=== PATIENT | female | born 1945 | race Caucasian/White ===

== ENCOUNTER 2020-04-26 06:54 | Outpatient (CLI) | payer MEDICARE ==
[2020-04-26 13:59] LABS: #Basophils 0.1 10x3/uL (0.0-0.2); #Eosinphils 0.2 10x3/uL (0.0-0.5); #Monocytes 0.5 10x3/uL (0.0-1.1); %Eosinophils 2.4 % (0.0-6.0); %Lymphocytes 31.5 % (18.0-47.0); %Monocytes 7.2 % (0.0-10.0); %Neutrophils 57.3 % (40.0-75.0); Hemoglobin 13.8 g/dL (12.0-16.0); Mean Corpuscular HGB CONC 33.7 G/DL (32.0-36.0); Mean Corpuscular Hemoglobin 30.9 PG (27.0-33.0); Mean Corpuscular Volume 91.5 fl (80.0-100.0); Mean Platelet Volume 9.7 fl (7.4-10.4); Platelet Count 245 10x3/uL (130-400); RBC Distribution Width 12.5 % (11.5-14.5); Red Blood Cell (RBC) Count 4.47 10x6/uL (3.90-5.20)
[2020-04-26 14:11] LABS: Prothrombin Time 10.5 sec (9.5-12.1)
[2020-04-26 22:58] LABS: SARS-CoV-2 MS2 Positive; SARS-CoV-2 N Gene Negative; SARS-CoV-2 S Gene Negative; SARS-CoV-2 by NAA Not Detected (NotDetected); SARS-CoV-2 orf1ab Negative
--- NOTE | 2020-05-01 06:55 | EKG ---
Test Reason : Blood Pressure : / mmHG Vent. Rate : 060 BPM Atrial Rate : 060 BPM P-R Int : 166 ms QRS Dur : 084 ms QT Int : 420 ms P-R-T Axes : 069 038 013 degrees QTc Int : 420 ms Normal sinus rhythm Nonspecific ST abnormality Abnormal ECG No previous ECGs available Confirmed by MALLORY WILKS MD ([id number]) on 05/01/2020 6:54:41 AM Referred By: POPEYE Confirmed By:MALLORY WILKS MD
== END 2020-04-26 06:55 | disposition home or self-care (01) ==
LOC: LABBT 06:54
PROVIDERS: ATTEND Orthopaedic Surgery
DX: Z01.818 Encounter for other preprocedural examination (principal); M16.11 Unilateral primary osteoarthritis, right hip; Z20.828 Contact with and (suspected) exposure to other viral communicable diseases
CPT/HCPCS: 85025; 85610; 87081; 93005; U0003; 87635; 93010

== ENCOUNTER 2020-04-26 13:00 | Inpatient (IN) | payer MEDICARE ==
[2020-05-01] MEDS ORDERED: Tranexamic Acid 1,000 MG/10 ML VIAL ONE (06:11)
[2020-05-01] MEDS ORDERED: Sodium Chloride 0.9% 100 ML ONE (06:12)
[2020-05-01] MEDS ORDERED: Vancomycin 1 GM/200 ML BAG ONE (06:12)
[2020-05-01] MEDS ORDERED: Fentanyl 100 MCG/2 ML VIAL ONE ×2 (06:31→07:12)
[2020-05-01] MEDS ORDERED: Midazolam HCl 2 mg/2 ml Vial ONE (06:31)
[2020-05-01] MEDS ORDERED: methylPREDNISolone Acetate 40 mg/ml Vial ONE (06:52)
[2020-05-01] MEDS ORDERED: Lidocaine 1% (PF) 30 ML VIAL ONE (06:52)
[2020-05-01] MEDS ORDERED: Bupivacaine 0.25% 10 ML VIAL EPIDURAL PRN (07:30)
[2020-05-01] MEDS ORDERED: fentaNYL Citrate/PF 500 MCG, Bupivacaine 10 ML in Sodium Chloride 0.9% 80 ML EPIDURAL SCH (07:30)
[2020-05-01] MEDS ORDERED: traMADol HCl 50 MG TAB PO PRN ×3 (07:30→08:50)
[2020-05-01] MEDS ORDERED: diphenhydrAMINE 50 MG/ML VIAL IM PRN (07:30)
[2020-05-01] MEDS ORDERED: HYDROcodone/Acetaminophen 5/325 mg Tablet PO PRN ×2 (07:30)
[2020-05-01] MEDS ORDERED: Hydrocerin (Eucerin) Cream 120 gm Jar TOP PRN (07:30)
[2020-05-01] MEDS ORDERED: Promethazine HCl 25 MG SUPP PR PRN (07:30)
[2020-05-01] MEDS ORDERED: Naloxone HCl 0.4 mg/ml Vial IV PRN (07:30)
[2020-05-01] MEDS ORDERED: diphenhydrAMINE 50 MG/ML VIAL IVP PRN (07:30)
[2020-05-01] MEDS ORDERED: Naloxone HCl 0.4 mg/ml Vial IVP PRN (07:30)
[2020-05-01] MEDS ORDERED: Promethazine HCl 25 MG/ML VIAL IM PRN ×2 (07:30→08:50)
[2020-05-01] MEDS ORDERED: Zolpidem Tartrate 5 MG TAB PO PRN ×2 (07:30→08:50)
[2020-05-01] MEDS ORDERED: Ondansetron PF 4 MG/2 ML Vial IVP PRN ×2 (07:30→08:50)
[2020-05-01] MEDS ORDERED: diphenhydrAMINE 25 MG CAP PO PRN (07:30)
[2020-05-01] MEDS ORDERED: Bupivacaine 0.25% HCL 30 ML VIAL ONE (07:49)
[2020-05-01] MEDS ORDERED: HYDROcodone/Acetaminophen 10/325 mg Tablet PO PRN ×2 (08:50)
[2020-05-01] MEDS ORDERED: Ketorolac Tromethamine 30 MG/ML VIAL IVP PRN (08:50)
[2020-05-01] MEDS ORDERED: Fentanyl 100 MCG/2 ML VIAL SLOW IVP PRN ×2 (08:50)
[2020-05-01] MEDS ORDERED: Acetaminophen 325 MG TAB PO PRN (08:50)
[2020-05-01] MEDS ORDERED: ePHEDrine 50 MG/ML VIAL ONE (09:19)
[2020-05-01] MEDS ORDERED: Rocuronium Bromide 10 MG/ML (10ML VIAL) ONE (09:45)
[2020-05-01] MEDS ORDERED: PHENYLEPHRINE-NS 100 MCG/ML 10 ML SYRINGE ONE (09:45)
[2020-05-01] MEDS ORDERED: Ondansetron PF 4 MG/2 ML Vial ONE (09:45)
[2020-05-01] MEDS ORDERED: Lidocaine 1.5% w/Epi 1:200K 30 ML VIAL (Epid Use) ONE (09:45)
[2020-05-01] MEDS ORDERED: Glycopyrrolate 0.2 MG/ML 5 ML SYRINGE ONE (09:45)
[2020-05-01] MEDS ORDERED: Dexamethasone 20 MG/5 ML VIAL ONE (09:45)
[2020-05-01] MEDS ORDERED: Ketorolac Tromethamine 30 MG/ML VIAL ONE ×2 (09:45→14:14)
[2020-05-01] MEDS ORDERED: PROPOFOL 200 MG/20 ML VIAL ONE (09:45)
[2020-05-01] MEDS ORDERED: Ketorolac Tromethamine 30 MG/ML VIAL IVP SCH (12:00)
[2020-05-01] MEDS: Senokot S 8.6-50 MG TAB PO SCH ×2 (14:07→20:52)
--- NOTE | 2020-05-01 14:14 | RAD ---
EXAM: Left hip: One view INDICATIONS: Postop hip replacement COMPARISON: None. FINDINGS: Components appear adequately positioned on this one view study. IMPRESSION: Postop left hip
[2020-05-01] MEDS: Ketorolac Tromethamine 30 MG/ML VIAL IVP SCH ×2 (14:23→20:48)
--- NOTE | 2020-05-01 14:36 | OP ---
DATE OF PROCEDURE: 05/01/2020 PREOPERATIVE DIAGNOSIS: Left hip osteoarthritis as well as left knee osteoarthritis. POSTOPERATIVE DIAGNOSIS: Left hip osteoarthritis as well as left knee osteoarthritis. PROCEDURES PERFORMED: 1. Left total hip arthroplasty. 2. Left knee large joint injection. STAFF: Stevie Rasmussen MD. SLURRY MAN: Dillon IQBAL ANESTHESIOLOGIST: Kym Love MD ANESTHESIA: The patient received a general with epidural. ESTIMATED BLOOD LOSS: Less than 150 mL. TOURNIQUET TIME: None. ANTIBIOTICS: Ancef 2 g, vancomycin 1 g, TXA 1 g. The patient had a Trident 10-degree 36 mm X3 poly, Trident Tritanium II size 52 mm shell, a 36 -2-1/2 ceramic Biolox Delta head and a size 4 Accolade II hip stem. COMPLICATIONS: None. HISTORY OF PRESENT ILLNESS: Ms. Iyer is a pleasant 74-year-old female who presents with left hip pain. She has failed conservative measures, anti-inflammatories, weight reduction, and home therapy. The patient also has left knee arthritis and desired left knee injection at that time. I discussed the risks and benefits of the left total hip arthroplasty to include pain, scar, bleeding, infection, damage to vital structures, decreased range of motion and strength, continued pain despite surgical intervention, blood clots, loss of life or limb. I discussed with her that her use of the Premarin dose slightly increased risk of blood clots. She understands the risks and benefits of procedure and elected to proceed. DESCRIPTION OF PROCEDURE: Time-out was performed designating the patient's left lower extremity as the operative site based on site, consents, and marking. After time-out, the patient's left lower extremity was prepped and draped, and she was placed in a lateral decubitus position. Her bony prominences were prepped and draped in sterile fashion. Procedure #1: After time-out, we placed a lateral incision down through skin, down to the IT band. IT band was split. Gluteus medius and minimus were taken off, the capsule was excised, the head was dislocated. We cut the head, short neck cuts, and given the short neck as well as thigh angle, removed the ball, placed our retractors in acetabulum. We removed our labrum, reamed starting at a 44 up to a 52, placed a 52 mm Trident II cup by 6 mm poly with it rotated posteriorly. We moved back to the femur. We broached from a 1 and up to a 4, trialed and broached again to get a little better position, placed a poly, trialed a 4 with a standard, we were a little bit long so we chose 4, -2-1/2. We washed. We then placed our final implant, put the 2-1/[address], reduced the hip. We did all range of motion. No signs of dislocation. We then washed. We closed the gluteus medius and minimus with #1 Vicryl. We closed IT band with #1 Vicryl, #2 Stratafix, 0 Stratafix, and 2-0 Stratafix, and glue. Procedure #2: The patient's left leg was cleaned. We injected the left knee intra-articularly with 8 mg of Depo-Medrol and 6 mL of 0.25% Marcaine plain into the joint. The patient will be admitted back to [facility], will be followed in- house. My sourcing assistant helped me with the positioning, approach, exposure, femoral neck cut, passed up for reaming, implantation of socket, implantation of femur, cleaning of the joint, closure, and injection of the knee. Job ID: [id number] MTDD
[2020-05-01] MEDS: Ferrous Gluconate 324 MG TAB PO SCH ×2 (14:41→20:52)
[2020-05-01] MEDS: Aspirin 81 mg Enteric Coated Tablet PO SCH ×2 (14:41→20:49)
--- NOTE | 2020-05-01 15:13 | RAD ---
AP VIEW OF THE PELVIS: INDICATION: History of total hip arthroplasty. COMPARISON: Prior left hip radiograph dated 03/15/2020. FINDINGS: Since the comparison examination, there has been interval placement of a left total hip prosthesis. Visualized prosthetic components project in the expected position. Mild degenerative change remains at the SI joints and symphysis pubis. Mild degenerative change is seen involving the right hip. Warba el gas pattern is unobstructed. IMPRESSION: Left total hip arthroplasty. POS: BH
[2020-05-01] MEDS: diphenhydrAMINE 25 MG CAP PO PRN (17:39)
[2020-05-01] MEDS: CEFAZOLIN 2 GM in Premix Bag 1 BAG IVPB SCH (17:41)
[2020-05-01] MEDS ORDERED: Vancomycin 1 GM in Premix Bag 1 BAG IVPB SCH (20:00)
[2020-05-01] MEDS: Gabapentin 300 MG CAP PO SCH (20:49)
[2020-05-01] MEDS: Rosuvastatin 10 MG TAB PO SCH (20:50)
[2020-05-01] MEDS: metFORMIN 500 MG TAB PO SCH (20:52)
[2020-05-02] MEDS: CEFAZOLIN 2 GM in Premix Bag 1 BAG IVPB SCH (00:32)
[2020-05-02] MEDS: Ketorolac Tromethamine 30 MG/ML VIAL IVP SCH ×4 (01:49→20:18)
[2020-05-02 05:33] LABS: Hemoglobin 12.2 g/dL (12.0-16.0); Mean Corpuscular HGB CONC 34.9 g/dL (32.0-36.0); Mean Corpuscular Hemoglobin 32.3 pg (27.0-31.0); Mean Corpuscular Volume 92.7 fL (78.0-98.0); Platelet Count 180 thou/uL (130-400); RBC Distribution Width 11.4 % (11.5-14.5); Red Blood Cell (RBC) Count 3.78 mill/uL (4.20-5.40); White Blood Cell (WBC) Count 9.1 thou/uL (4.8-10.8)
[2020-05-02] MEDS: Multivitamin W/ Minerals 1 TAB PO SCH (08:29)
[2020-05-02] MEDS: Gabapentin 300 MG CAP PO SCH ×2 (08:29→20:15)
[2020-05-02] MEDS: Ferrous Gluconate 324 MG TAB PO SCH ×2 (08:31→20:15)
[2020-05-02] MEDS: Aspirin 81 mg Enteric Coated Tablet PO SCH ×2 (08:31→20:15)
[2020-05-02] MEDS: Losartan 25 MG TAB PO SCH (08:32)
[2020-05-02] MEDS: Senokot S 8.6-50 MG TAB PO SCH ×2 (08:32→20:14)
[2020-05-02] MEDS: Bisoprolol Fumarate/HCTZ 5 mg/6.25 mg Tablet PO SCH (09:25)
[2020-05-02] MEDS: diphenhydrAMINE 25 MG CAP PO PRN ×2 (09:25→20:14)
[2020-05-02 11:18] VITALS: BMI 29.2
[2020-05-02] MEDS: Rosuvastatin 10 MG TAB PO SCH (20:14)
[2020-05-02] MEDS: metFORMIN 500 MG TAB PO SCH (20:16)
[2020-05-03] MEDS: Ketorolac Tromethamine 30 MG/ML VIAL IVP SCH ×2 (01:49→08:16)
[2020-05-03 05:20] LABS: Hemoglobin 12.1 g/dL (12.0-16.0); Mean Corpuscular HGB CONC 34.3 g/dL (32.0-36.0); Mean Corpuscular Hemoglobin 32.5 pg (27.0-31.0); Mean Corpuscular Volume 94.8 fL (78.0-98.0); Mean Platelet Volume 7.3 fL (7.4-10.4); Platelet Count 186 thou/uL (130-400); RBC Distribution Width 11.3 % (11.5-14.5); Red Blood Cell (RBC) Count 3.72 mill/uL (4.20-5.40); White Blood Cell (WBC) Count 12.5 thou/uL (4.8-10.8)
[2020-05-03] MEDS: Gabapentin 300 MG CAP PO SCH (08:13)
[2020-05-03] MEDS: Ferrous Gluconate 324 MG TAB PO SCH (08:13)
[2020-05-03] MEDS: Aspirin 81 mg Enteric Coated Tablet PO SCH (08:15)
[2020-05-03] MEDS: Senokot S 8.6-50 MG TAB PO SCH (08:15)
[2020-05-03] MEDS: Multivitamin W/ Minerals 1 TAB PO SCH (08:16)
[2020-05-03] MEDS: Losartan 25 MG TAB PO SCH (08:16)
[2020-05-03] MEDS: Bisoprolol Fumarate/HCTZ 5 mg/6.25 mg Tablet PO SCH (10:49)
[2020-05-03 11:16] VITALS: BP 114/68; TEMP 97.6
== END 2020-05-03 14:05 | disposition home or self-care (01) | DRG 470 ==
LOC: SJJU 05-01 05:34
PROVIDERS: ADMIT Orthopaedic Surgery; ATTEND Orthopaedic Surgery
PROC: 0SRB03Z Replacement of Left Hip Joint with Ceramic Synthetic Substitute, Open Approach (ICD-10-PCS; principal; 2020-05-01)
DX: M16.12 Unilateral primary osteoarthritis, left hip (principal); Z20.828 Contact with and (suspected) exposure to other viral communicable diseases; I10 Essential (primary) hypertension; R13.10 Dysphagia, unspecified; J30.9 Allergic rhinitis, unspecified; E55.9 Vitamin D deficiency, unspecified; E11.9 Type 2 diabetes mellitus without complications; Z79.82 Long term (current) use of aspirin; Z79.899 Other long term (current) drug therapy; Z79.84 Long term (current) use of oral hypoglycemic drugs; Z87.891 Personal history of nicotine dependence; Z90.710 Acquired absence of both cervix and uterus
CPT/HCPCS: 36415; 72170; 85027; 86850; 86900; 86901; J0690; J1100; J1885; J2001; J2250; J2405; J2704; J2920; J3010; J3370; J3490; Q0163; S0020

== ENCOUNTER 2024-06-30 08:44 | Outpatient (CLI) | payer MEDICARE | END 2024-06-30 08:45 | disposition home or self-care (01) | LOC: DTY/OP 08:44 | DX: Z00.00 Encounter for general adult medical examination without abnormal findings (principal); E11.42 Type 2 diabetes mellitus with diabetic polyneuropathy | CPT/HCPCS: 97802 ==

== ENCOUNTER 2024-07-22 09:12 | Outpatient (CLI) | payer MEDICARE | END 2024-07-22 09:13 | disposition home or self-care (01) | LOC: BICMAMMO 09:12 | PROVIDERS: ATTEND Family Medicine | DX: M81.0 Age-related osteoporosis without current pathological fracture (principal); Z78.0 Asymptomatic menopausal state | CPT/HCPCS: 77080 ==